=== PATIENT | male | born 1985 | race Caucasian/White ===

== ENCOUNTER 2016-03-05 12:06 | Emergency (ER) | payer MEDICARE, MEDICAID ==
[~2016-03-05] VITALS: Ht 188 cm; Wt 93.0 kg
[2016-03-05 12:08] VITALS: BP 128/92; PULSE 92; RESP 14; TEMP 97.8; O2SAT 99
--- NOTE | 2016-03-05 13:31 | PD ---
HPI Chief Complaint: Psychiatric Symptoms Time Seen by Provider: 13:27 Travel History International Travel<30 days: No Contact w/Intl Traveler<30days: No Traveled to known affect area: No History of Present Illness HPI 30-year-old male presents the emergency department with his mother for psychiatric symptoms. 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 Mother states that he is becoming more and more agitated, has not slept for several days, and is speaking to people who were not there. Patient was seen at [facility] yesterday and had a full battery of tests with no significant findings, other than mild hypokalemia which was treated. The labs and discharge paperwork were reviewed from the [facility]. He has no medical complaints today. He is allergic to Ambien, Benadryl, and temazepam. [facility] Past Medical History Cardiovascular Problems: Yes Schizophrenia: Yes (UNDIAGNOSED) Past Surgical History Other Surgery: Yes (MULTIPLE LEFT JAW SURGERIES) Social History Alcohol Use: No Tobacco Use: No Substance Use: No Allergies-Medications (Allergen,Severity, Reaction): Coded Allergies: Ambien (Verified Allergy, Severe, AGITATION, 03/05/16) Benadryl (Verified Allergy, Unknown, 03/05/16) Temazepam (Verified Allergy, Unknown, 03/05/16) Review of Systems ROS Limitations: Speech Impaired, Poor Historian General / Constitutional: No: Fever Eyes: No: Visual changes HENT: No: Headaches Cardiovascular: No: Chest Pain or Discomfort Respiratory: No: Shortness of Breath Gastrointestinal: No: Abdominal Pain Genitourinary: No: Dysuria Musculoskeletal: No: Pain Skin: No Rash Neurologic: No: Weakness Psychiatric: No: Depression Endocrine: No: Polydipsia Hematologic/Lymphatic: No: Easy Bruising Physical Exam Narrative GENERAL: Patient appears in no acute distress. SKIN: Warm and dry. Normal color. Normal turgor. HEAD: Atraumatic. Normocephalic. EYES: Pupils equal and round. No scleral icterus. No injection or drainage. ENT: No nasal bleeding or discharge. Mucous membranes pink and moist. Patient is edentulous. Pharynx is normal. NECK: Trachea midline. No JVD. Supple nontender. CARDIOVASCULAR: Regular rate and rhythm. Regular rate and rhythm no murmurs appreciated. RESPIRATORY: No accessory muscle use. Clear to auscultation. Breath sounds equal bilaterally. GASTROINTESTINAL: Abdomen soft, non-tender, nondistended. Hepatic and splenic margins not palpable. MUSCULOSKELETAL: Extremities without clubbing, cyanosis, or edema. No obvious deformities. NEUROLOGICAL: Awake and alert. No obvious cranial nerve deficits. Motor grossly within normal limits. Five out of 5 muscle strength in the arms and legs. Patient is nonverbal. PSYCHIATRIC: Patient appears happy and in no acute distress. Unable to further delineate. Data Data Last Documented VS Vital Signs Date Time Temp Pulse Resp B/P Pulse Ox O2 Delivery O2 Flow Rate FiO2 03/05/16 12:08 97.8 92 14 128/92 99 MDM Medical Decision Making Medical Screen Exam Complete: Yes Emergency Medical Condition: Yes Differential Diagnosis Agitation. Psychiatric symptoms. Possible hallucinations. Narrative Course Patient is felt to be medically stable at time of exam. Laboratory not felt to be necessary as patient was just evaluated yesterday medically cleared. Patient is medically clear for psychiatric evaluation. Diagnosis Primary Impression: Medical clearance for psychiatric admission Condition: Stable Riley Jasmine Mar 05, 2016 13:31
[2016-03-05] MEDS ORDERED: LORazepam 1 MG TAB PO ONE (15:00)
== END 2016-03-05 16:17 | disposition left against medical advice (07) ==
LOC: NEPE 12:06
DX: R45.1 Restlessness and agitation (principal); F84.0 Autistic disorder
CPT/HCPCS: 99284